=== PATIENT | female | born 1960 | race Caucasian/White ===

== ENCOUNTER → 2016-11-12 | Outpatient (CLI) | payer OTHER | LOC: BMCIMAGING 14:31 | PROVIDERS: ATTEND Physician Assistant Medical | DX: R05 Cough (principal) ==

== ENCOUNTER 2018-07-02 05:41 | Observation (INO) | payer OTHER ==
--- NOTE | 2018-07-02 05:50 | EDPHY ---
H & P - Medical/Surgical History Hx Asthma: No Hx Chronic Respiratory Disease: No Hx Diabetes: No Hx Cardiac Disease: No Hx Renal Disease: No Hx Cirrhosis: No Hx Alcoholism: No Hx HIV/AIDS: No Hx Splenectomy or Spleen Trauma: No Other PMH: Bipolar, Time Seen by Provider: 07/02/18 05:45 HPI/ROS: Chief Complaint: Chest pain HPI: 58-year-old woman woke approximately 1 hr ago with tightness in her upper chest. Worse about an 8/10. It felt like she could not take a full breath. Was not radiating. Does not have a history of similar episodes in the past. No recent illness. No fevers or chills. No cough. No abdominal pain. She does not smoke. She does have a family history of coronary artery disease, her father had heart trouble when he is in his 50s. She has not have a history of dyspnea or chest pain on exertion. Two nights ago and she did have some cramping in her right leg. No swelling. No periods of immobility recently. EMS gave her 4 baby aspirin. ROS: 10 systems were reviewed and were negative except those elements noted in the HPI. PMH: Bipolar disorder Social History: No smoking, occasional alcohol, no recreational drug use Family History: Father has a history of coronary artery disease which began in his 50s. Physical Exam: Gen: Awake, Alert, No Distress HEENT: Nose: no rhinorrhea Eyes: PERRLA, EOMI Mouth: Moist mucosa Neck: Supple, no JVD Chest: nontender, lungs clear to auscultation Heart: S1, S2 normal, no murmur Abd: Soft, non-tender, no guarding Back: no CVA tenderness, no midline tenderness Ext: no edema, non-tender Skin: no rash Neuro: CN II-XII intact, Sensation grossly intact, Strength 5/5 in bilateral upper and lower extremities (Chato Valencia) Constitutional: Initial Vital Signs Temperature (C) 36.5 C 07/02/18 05:47 Heart Rate 73 07/02/18 05:47 Respiratory Rate 18 07/02/18 05:47 Blood Pressure 143/89 H 07/02/18 05:47 O2 Sat (%) 96 07/02/18 05:47 O2 Delivery Mode Nasal Cannula O2 (L/minute) 2 Allergies/Adverse Reactions: Penicillins Allergy (Intermediate, Verified 07/02/18 06:05) Rash Home Medications: Medication Instructions Recorded lamoTRIgine [Lamictal] 200 mg PO HS 09/26/13 Herbals/Supplements -Info Only 1 ea PO DAILY 07/02/18 Ibuprofen [Motrin (*)] 400 mg PO Q6H PRN 07/02/18 Medical Decision Making - Diagnostics EKG Interpretation: ECG time 5:52 a.m., sinus rhythm with a rate of 65, normal axis, normal intervals, no acute ST or T-wave changes. Impression: Normal ECG. (Chato Valencia) ED Course/Re-evaluation: 58-year-old woman with a single risk factor for coronary artery disease presenting with chest tightness which woke with this morning. She has a heart score of 3 putting her in the low risk category. I have given her a GI cocktail. Awaiting chest x-ray and D-dimer results. Patient has not had any change with GI cocktail. Chest x-ray and D-dimer are normal. She has a heart score 3. Plan will be to repeat a troponin at 8:30 a.m.. If this is negative she will be suitable for outpatient follow-up. I have reviewed the results of the initial diagnostic testing and the risk factors with the patient, including the results of the troponin and the ECG. We have also discussed the results of the repeat troponin. The patient understands that since these are negative, the risk of having a heart attack or heart complication within the next 30 days is 1%, or 1/100. We discussed the patient's personal risk level evaluation and we discussed the importance of follow-up. If their symptoms are to worsen or if they are unable to get follow- up with one-week the patient will return to the emergency department. The decision to be discharged for outpatient follow-up was made by a shared decision making process between myself and the patient. (Chato Valencia) Other Provider: I was asked by the patient's nurse to discuss her case with her at 9:10 a.m.; she states she is still having chest pain and is not comfortable going home, wants to know "what is causing my symptoms." Repeat troponin is negative, she says she still has some upper chest discomfort which is worse with taking a deep breath. She does not have any abdominal pain or tenderness. Labs reviewed including and negative D-dimer and 2-troponins. At this time the also tells me that the patient has bipolar disorder which is often poorly controlled, he thinks that this may be contributing to her symptoms as well. She is given IV pain medication. 927: discussed with Dr. Iraheta to arrange prompt cardiology followup; 938: he came to ED to consult, and assumed care of the patient. After consultation and diagnostics he asked the patient be admitted to his service for further evaluation. (Dami Edge) - Data Points Laboratory Results: Laboratory Results 07/02/18 05:45 07/02/18 05:45 Medications Given: Acetaminophen (Tylenol) 650 mg PO QID PRN PRN Reason: Pain, Mild Able to Take PO Stop: 12/29/18 15:11 Last Admin: 07/02/18 21:15 Dose: 650 mg Sodium Chloride (Ns) 1,000 mls @ 200 mls/hr IV CONT YANCY Stop: 12/29/18 17:29 Last Admin: 07/02/18 19:00 Dose: 1,000 mls Lamotrigine (Lamictal) 200 mg PO HS YANCY Stop: 12/29/18 20:59 Last Admin: 07/02/18 21:12 Dose: 200 mg Pantoprazole Sodium (Protonix) 40 mg PO DAILY YANCY Stop: 12/29/18 20:29 Last Admin: 07/02/18 21:17 Dose: 40 mg Discontinued Medications Al Hydroxide/Mg Hydroxide (Maalox Susp) 30 ml PO ONCE ONE Stop: 07/02/18 06:02 Last Admin: 07/02/18 06:08 Dose: 30 ml Al Hydroxide/Mg Hydroxide (Maalox Susp) 30 ml PO ONCE ONE Stop: 07/02/18 20:21 Last Admin: 07/02/18 21:13 Dose: 30 ml Aspirin Buffered (Aspirin Ec) 325 mg PO ONCALL ONE Stop: 07/02/18 15:13 Last Admin: 07/02/18 19:34 Dose: Not Given Diazepam (Valium) 5 mg PO ONCALL ONE Stop: 07/02/18 15:13 Last Admin: 07/02/18 19:33 Dose: Not Given Diphenhydramine HCl (Benadryl) 25 mg PO ONCALL ONE Stop: 07/02/18 15:13 Last Admin: 07/02/18 19:33 Dose: Not Given Famotidine (Pepcid) 20 mg PO ONCALL ONE Stop: 07/02/18 15:13 Last Admin: 07/02/18 19:33 Dose: Not Given Hydromorphone HCl (Dilaudid) 0.5 mg IVP EDNOW ONE Stop: 07/02/18 13:39 Last Admin: 07/02/18 13:40 Dose: 0.5 mg Hyoscyamine Sulfate (Levsin, Hyomax-Sl) 0.25 mg PO ONCE ONE Stop: 07/02/18 20:21 Last Admin: 07/02/18 21:12 Dose: 0.25 mg Ketorolac Tromethamine (Toradol) 15 mg IVP EDNOW ONE Stop: 07/02/18 06:31 Last Admin: 07/02/18 06:35 Dose: 15 mg Lamotrigine (Lamictal) 200 mg PO DAILY YANCY Stop: 12/29/18 20:14 Last Admin: 07/02/18 21:20 Dose: Not Given Lidocaine (Lidocaine 2% Viscous) 15 ml PO ONCE ONE Stop: 07/02/18 06:02 Last Admin: 07/02/18 06:08 Dose: 15 ml Lidocaine (Lidocaine 2% Viscous) 15 ml PO ONCE ONE Stop: 07/02/18 20:21 Last Admin: 07/02/18 21:13 Dose: 15 ml Lorazepam (Ativan Injection) 0.5 mg IVP EDNOW ONE Stop: 07/02/18 07:19 Last Admin: 07/02/18 07:19 Dose: 0.5 mg Point of Care Test Results: Chemistry 07/02/18 07/02/18 08:35 05:49 POC Troponin I 0.01 ng/mL ng/mL 0.01 ng/mL ng/mL (0.00-0.08) (0.00-0.08) Departure - Departure Disposition: [facility] Inpatient Acute Clinical Impression: Chest pain Condition: Good
[2018-07-02 06:00] LABS: PLATELET COUNT 315 10^3/uL (150-400)
[2018-07-02] MEDS ORDERED: LIDOCAINE 2% VISCOUS 15 ML UDCUP PO ONE ×2 (06:01→20:20)
[2018-07-02] MEDS ORDERED: MAG HYDROX/AL HYDROX/SIMETH 30 ML UDCUP PO ONE ×2 (06:01→20:20)
[2018-07-02] MEDS ORDERED: KETOROLAC 15 MG/1 ML SDV IVP ONE (06:30)
[2018-07-02] MEDS ORDERED: HYDROmorphONE/DILAUDID 2 MG/ML INJ IVP ONE ×2 (06:43→13:38)
[2018-07-02] MEDS ORDERED: LORazepam 2 MG/ML INJ ONE (07:15)
--- NOTE | 2018-07-02 07:15 | CPEKG ---
Test Reason : OPEN Blood Pressure : / mmHG Vent. Rate : 065 BPM Atrial Rate : 064 BPM P-R Int : 139 ms QRS Dur : 081 ms QT Int : 400 ms P-R-T Axes : 064 010 038 degrees QTc Int : 416 ms Sinus rhythm Confirmed by Chato Valencia ([id number]) on 07/02/2018 7:15:32 AM Referred By: Confirmed By:Chato Valencia
[2018-07-02] MEDS ORDERED: LORazepam 2 MG/ML INJ IVP ONE (07:18)
[2018-07-02] MEDS ORDERED: IOPAMIDOL (ISOVUE 370) 100 ML BTL IV ONE (13:12)
--- NOTE | 2018-07-02 13:17 | GCON ---
CARDIOLOGY CONSULTATION DATE OF CONSULTATION: 07/02/2018 INDICATION FOR CONSULTATION: Chest pain. HISTORY OF PRESENT ILLNESS: Ilsa is a pleasant 58-year-old female with a past medical history of bi polar disorder, which has been stable on current dose of Lamictal, who was in her usual state of heal th until approximately 4:30 this morning when she woke with what she describes as 4/[address] tightness, that she also describes as "squeezing" with radiation to her right shoulder and jaw. S he states these symptoms were also associated with shortness of breath and difficulty taking a deep b reath. She got up out of bed and was unable to relieve alleviate the symptoms, prompting her to seek medical attention at [facility]. Since her hospitalization, she has received Maalox as well as 0.5 mg of Dilaudid and 50 mg of Toradol and half a mg of Ativan. None of these measures have alleviated her pain. Currently, at the time of my exam, she continues to complain of 8/10 substernal chest tightness and s queezing with progression of symptoms to the right shoulder, neck and now into the jaw. She continue s to have difficulty taking deep breath. Mrs. Saldana has no known history of coronary artery disease. She has no history of hypertension, hy perlipidemia or diabetes. She does have a family history of premature coronary artery disease. Her father underwent coronary a rtery bypass graft surgery initially in his 50s. No other family members with known coronary artery disease. Mrs. Saldana has no history of DVT, pulmonary emboli, or hypercoagulable conditions. She has not had any long car rides or plane rides recently. She has no recent history of viral syndrome, flu or GI illness. No recent complaints of fevers, chil ls, sweats, nausea, or vomiting. PAST MEDICAL HISTORY: Bipolar disorder. MEDICATIONS ON ADMISSION: Lamictal 200 mg q.h.s. SOCIAL HISTORY: She is . 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 She has a 13-year-o ld daughter. She is a nonsmoker currently; however, she did smoke for approximately 10 years and aster t in 1999. No illicit drug use. She does walk regularly approximately 20 minutes 1 hour without sym ptoms. PHYSICAL EXAMINATION: VITAL SIGNS: Blood pressure is currently 99/65, heart rate of 72 in sinus rhy thm, oxygen saturation 97% on room air. GENERAL: She is awake, alert, oriented, appropriate, and ap pears to be resting comfortably. She does have difficulty taking deep inspiration. NECK: There is no evidence of JVP or carotid bruits. LUNGS: Clear to auscultation bilaterally. CARDIAC: S1, S2. Regular rate and rhythm. No murmurs, rubs, or gallops. ABDOMEN: Soft, mildly tender to deep palpa tion. There is no evidence of abdominal bruits or pulsatile mass. EXTREMITIES: No evidence of cyan osis, clubbing or lower extremity edema. Calves are nontender to palpation. She has 2+ dorsalis ped is and posterior tibial pulses, bilaterally. DATA: Chest x-ray was unremarkable. ECG demonstrates sinus rhythm at 65 beats per minute with normal intervals. Normal axis. No evidenc e of ischemic changes. White blood cell count 13.56, hemoglobin 16.1, hematocrit 46.2, platelet count 315. D-dimer 0.28 wit hin normal limits. Sodium 141, potassium 5.1, chloride 105, bicarb 23, BUN 23, creatinine 0.7, point of care troponin at 0549 was within normal limits at 0.01. Repeat troponin at 0835 unchanged at 0.0 1. IMPRESSION: Mrs. Saldana is a pleasant 58-year-old female who woke with acute onset of substernal ch est tightness 8/10 now radiating to the right shoulder into the neck and jaw, unresponsive to Maalox, Dilaudid, Toradol and Ativan. EKG is unremarkable. Initial troponins x2, most recently at approxim ately 0830 was unremarkable point of care troponin; however, she has ongoing symptoms. I would recommend stat echocardiogram to assess left ventricular function as well as right ventricula r function. If the echocardiogram is unremarkable for signs of right ventricular strain or any indic ation of possible pulmonary embolism, would recommend pursuing diagnostic left heart catheterization. She has no risk factors or history that would suggest pulmonary embolism. No recent history suggesti ve of pericarditis. PLAN: 1. Stat echocardiogram. 2. Pending results of echocardiogram, we will pursue diagnostic left heart catheterization. /[id number]/MODL
[2018-07-02] MEDS ORDERED: HYDROmorphONE/DILAUDID 2 MG/ML INJ ONE (13:34)
[2018-07-02] MEDS ORDERED: diphenhydrAMINE 25 MG CAP PO ONE (15:12)
[2018-07-02] MEDS ORDERED: ASPIRIN EC 325 MG TAB PO ONE (15:12)
[2018-07-02] MEDS ORDERED: FAMOTIDINE 20 MG TAB PO ONE (15:12)
[2018-07-02] MEDS ORDERED: DIAZEPAM 5 MG TAB PO ONE (15:12)
[2018-07-02] MEDS ORDERED: NITROGLYCERIN 0.4 MG BTL SL PRN (15:12)
[2018-07-02] MEDS ORDERED: ACETAMINOPHEN 325 MG TAB PO PRN (15:12)
[2018-07-02] MEDS ORDERED: TEMAZEPAM 15 MG CAP PO PRN (15:12)
[2018-07-02] MEDS ORDERED: NS 1,000 ML IV SCH ×2 (15:15→17:30)
[2018-07-02] MEDS ORDERED: LIDOCAINE 1% 300 MG/30 ML SDV ONE (15:18)
[2018-07-02] MEDS ORDERED: fentaNYL 100 MCG/2 ML INJ ONE (15:18)
[2018-07-02] MEDS ORDERED: MIDAZOLAM 2 MG/2 ML VIAL ONE (15:19)
[2018-07-02] MEDS ORDERED: IOPAMIDOL (ISOVUE-370) 150 ML BTL IV ONE (15:19)
--- NOTE | 2018-07-02 16:07 | PDPROPOC ---
Sedation Plan of Care Sedation Plan of Care: vital signs stable, mental status noted, patient educated of risks, benefits, alternatives, patient can tolerate sedation ASA Classification: ASA 2 Planned drugs: fentanyl, midazolam Mallampati Score: Class 2 Mallampati Reference Image: Patient passed 3-3-2 rule?: Yes
--- NOTE | 2018-07-02 16:45 | ECHO ---
[email or web address] [address] Main: [phone] Fax: Transthoracic Echocardiogram Name: MIGEL MEDINA MR#: [id number] Study Date: 07/02/2018 Study Time: 12:37 PM Date of : 1960 Age: 58 year(s) Height: 154.9 cm (61 in.) Weight: 47.63 kg (105 lb.) BSA: 1.44 m2 Gender: Female Examination: Echo Indication: Chest Pain Image Quality: Adequate Contrast: Requested by: Dami Edge BP: 108 mmHg/74 mmHg Heart Rate: Rhythm: Indication: Chest Pain Procedure Staff Finished Cloth Examiner: Erica Lozoya [facility] Reading Physician: Hung Rangel MD Requesting Provider: Conclusions: Normal size left ventricle. Normal global systolic LV function. EF is 59 %. Normal RV function. The mitral valve is normal in appearance and function. Trivial mitral valve regurgitation. The aortic valve is tri-leaflet and functions normally. There is no aortic valve regurgitation. No aortic valve stenosis is present. Pulmonary artery pressure is not obtained due to inadequate TR jet. Normal size aortic root measuring 2.8 cm. No pericardial effusion. No old studies for comparison. Measurements: Chambers Valvular Assessment AV/MV Valvular Assessment TV/PV Normal Normal Normal Name Value Range Name Value Range Name Value Range Ao Laura (MM): 2.8 cm (2.2 cm-3.7 AV Vmax: 1.35 m/s (1 m/s-1.7 TR Vmax: 1.99 mm/s ( - ) cm) m/s) TR PGmax: 16 mmHg ( - ) IVSd (2D): 0.8 cm (0.6 cm-1.1 AV maxP mmHg ( - ) PV Vmax: 0.66 m/s (0.6 m/s-0.9 cm) LVOT Vmax: 0.85 m/s (0.7 m/s-1.1 m/s) LVDd (2D): 3.5 cm (3.9 cm-5.3 m/s) PV PGmax: 2 mmHg ( - ) cm) FABIANA (Vmax): 1.3 cm2 ( - ) LVDs (2D): 2.6 cm (2.1 cm-4 MV E Vmax: 0.55 m/s ( - ) cm) MV A Vmax: 0.61 m/s ( - ) LVPWd (2D): 0.7 cm ( - ) MV E/A: 0.90 ( - ) LVOTd 1.6 cm 1.6 cm mm LVEF (BP): 59 % (>=55 %) Patient: MIGEL MEDINA Study Date: 07/02/2018 Page 1 of 2 12:37 PM RVDd(2D): 3.3 cm (1.9 cm-3.8 cmmm) Continued Measurements: Chambers Valvular Assessment AV/MV Name Value Name Value LADs Lon.9 cm MV DecTime: 204 m/s LA Area: 9.3 cm2 MV E/E' Septal: 7.00 LA Volume: 17 ml MV E/E' Lateral: 5.80 LA Volume Index: 11.8 ml/m2 TAPSE: 1.6 cm RA Area: 10.7 cm2 Findings: Left Ventricle: Normal size left ventricle. No LV hypertrophy. Normal global systolic LV function. EF is 59 %. No regional wall motion abnormality. Mild septal bounce noted. Normal diastolic LV function. Right Ventricle: Mildly dilated right ventricle. Normal RV function. Left Atrium: The left atrium is normal in size. Right Atrium: The right atrium is normal in size. Mitral Valve: The mitral valve is normal in appearance and function. Trivial mitral valve regurgitation. No mitral stenosis is present. Aortic Valve: The aortic valve is tri-leaflet and functions normally. There is no aortic valve regurgitation. No aortic valve stenosis is present. Tricuspid Valve: The tricuspid valve is normal in appearance and function. Trivial tricuspid valve regurgitation. Pulmonary artery pressure is not obtained due to inadequate TR jet. Pulmonic Valve: Pulmonary valve not well visualized. There is no pulmonic regurgitation seen. Aorta: Normal size aortic root measuring 2.8 cm. IVC: Normal size and course of the IVC. Pericardium: No pericardial effusion. (No Signature Object) Patient: MIGEL MEDINA Study Date: 07/02/2018 Page 2 of 2 12:37 PM [id number]
[2018-07-02] MEDS ORDERED: ONDANSETRON 4 MG/2 ML VIAL IVP PRN (17:18)
[2018-07-02] MEDS ORDERED: ATROPINE SULFATE 1 MG/10 ML SYR IVP PRN (17:18)
[2018-07-02 17:54] LABS: INR 1.1 (0.83-1.16); PROTIME(PATIENT) 14.4 SEC (12.0-15.0)
--- NOTE | 2018-07-02 19:14 | CPIP ---
DATE OF PROCEDURE: 07/02/2018 PROCEDURE PERFORMED: Diagnostic left heart catheterization. INDICATION FOR LEFT HEART CATHETERIZATION: Patient with acute onset of 8/10 substernal chest pain. Pain has persisted throughout the course of the day. The pain has not responded to medication includ ing Dilaudid, GI cocktail, Ativan and Toradol. CTA was negative for pulmonary embolism or aortic dis section. In the setting of ongoing 8/10 chest pain refractory to medical therapy, patient was pradeep t to cardiac catheterization lab for further evaluation. PROCEDURE: After informed consent was obtained for left heart catheterization, patient was prepped a nd draped in sterile fashion. Using 1% lidocaine, the right groin was anesthetized. Using modified Seldinger technique and micropuncture technique, 6-Lao catheter was placed into the right common f emoral artery without complications. A JL4 catheter was used to take images of the left coronary maranda alex in multiple projections. JL4 catheter was exchanged over a guidewire for a JR4 catheter. JR4 c atheter was used to take pictures of the right coronary artery. JL4 catheter was exchanged over a gu idewire for a Leno right catheter for 1 final image of the right coronary artery. Leno right was used to cannulate the right coronary artery. AP cranial images were obtained of the right coron francia artery. Leno right catheter was exchanged over a guidewire for angled pigtail catheter. Ang led pigtail catheter was used to cross the aortic valve. Left ventriculogram was performed. Aortic valve gradient was assessed. Angled pigtail catheter was removed over a guidewire without complicati ons. Imaging of the right common femoral artery demonstrated appropriate placement of the catheter b elow the inguinal ligament and above the right common femoral artery bifurcation. FINDINGS: 1. Left main is normal size and caliber. Bifurcates into left anterior descending and left circumfl ex coronary artery. Left main demonstrates no evidence of coronary disease. 2. Left anterior descending artery is normal with no evidence of coronary disease. There is a moder ate-sized diagonal branch free of coronary artery disease. 3. 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 4. Circumflex artery is a large caliber vessel. There is a moderate-sized first obtuse marginal bra nch with no evidence of coronary disease. 5. Right coronary artery is a codominant vessel. No evidence of coronary disease within the right c oronary artery. HEMODYNAMICS: LVEF 65%. LVEDP 20 mmHg. Aortic valve gradient 3 mmHg. IMPRESSION: 1. Normal coronary arteries. 2. Normal left ventricular function. PLAN: 1. Patient will be admitted to [facility] Telemetry. 2. Consultation with hospitalist service for ongoing complaints of chest pain with no clear underlyi ng cardiopulmonary etiology. /[id number]/MODL
[2018-07-02] MEDS ORDERED: lamoTRIgine 100 MG TAB PO SCH ×2 (20:15→21:00)
[2018-07-02] MEDS ORDERED: HYOSCYAMINE SULFATE 0.125 MG TAB PO ONE (20:20)
[2018-07-02] MEDS ORDERED: KETOROLAC 15 MG/1 ML SDV IVP PRN (20:21)
--- NOTE | 2018-07-02 20:25 | PDGENHP ---
History and Physical - Chief Complaint chest pain - History of Present Illness 58 yo female with h/o bipolar disorder presents to ED with chest pain. She awoke at 4:30 am with central chest pressure, which radiated to left chest wall. She endorses pleuritic pain as well. No associated nausea or diaphoresis. She is not SOB. No cough or fevers. She describes the pain as tight and sharp. In the ED, cardiology consult was obtained and she underwent a left heart cath today which was negative for obstructive lesions. In addition , a CTA was negative for PE or dissection. She denies difficulty swallowing. She reports pain may be worse with eating. No N/V/D or abdominal pain. After workup has ruled out ACS, PE, dissection or other pulmonary issues, medicine is consulted to assist with management. History Information - Allergies/Home Medication List Allergies/Adverse Reactions: Penicillins Allergy (Intermediate, Verified 07/02/18 06:05) Rash Home Medications: lamoTRIgine [Lamictal] 200 mg PO HS 09/26/13 [Last Taken 07/01/18] Herbals/Supplements -Info Only 1 ea PO DAILY 07/02/18 [Last Taken 07/01/18] Ibuprofen [Motrin (*)] 400 mg PO Q6H PRN 07/02/18 [Last Taken 07/01/18] I have personally reviewed and updated: family history, medical history, social history, surgical history - Past Medical History Additional medical history: Bipolar disorder - Surgical History Reports: no pertinent surgical hx - Family History Positive for: non-pertinent - Social History Smoking Status: Never smoked Alcohol Use: None Drug Use: None Additional social history: Review of Systems Review of Systems: ROS: 10pt was reviewed & negative except for what was stated in HPI & below Physical Exam Physical Exam: Temp Pulse Resp BP Pulse Ox 36.8 C 83 14 102/69 96 07/02/18 18:51 07/02/18 18:51 07/02/18 18:51 07/02/18 18:51 07/02/18 18:51 O2 (L/minute) 2 Constitutional: no apparent distress Eyes: PERRL Ears, Nose, Mouth, Throat: moist mucous membranes Cardiovascular: regular rate and rhythym Respiratory: no respiratory distress, clear to auscultation Gastrointestinal: normoactive bowel sounds, soft, non-tender abdomen Skin: warm Musculoskeletal: full muscle strength Neurologic: AAOx3 Psychiatric: interacting appropriately Lab Data & Imaging Review 07/02/18 05:45 07/02/18 05:45 WBC 13.56 10^3/uL (3.80-9.50) H 07/02/18 05:45 RBC 4.98 10^6/uL (4.18-5.33) 07/02/18 05:45 Hgb 16.1 g/dL (12.6-16.3) 07/02/18 05:45 Hct 46.2 % (38.0-47.0) 07/02/18 05:45 MCV 92.8 fL (81.5-99.8) 07/02/18 05:45 MCH 32.3 pg (27.9-34.1) 07/02/18 05:45 MCHC 34.8 g/dL (32.4-36.7) 07/02/18 05:45 RDW 13.0 % (11.5-15.2) 07/02/18 05:45 Plt Count 315 10^3/uL (150-400) 07/02/18 05:45 MPV 9.7 fL (8.7-11.7) 07/02/18 05:45 Neut % (Auto) 69.1 % (39.3-74.2) 07/02/18 05:45 Lymph % (Auto) 21.2 % (15.0-45.0) 07/02/18 05:45 Riley % (Auto) 7.6 % (4.5-13.0) 07/02/18 05:45 Eos % (Auto) 1.2 % (0.6-7.6) 07/02/18 05:45 Baso % (Auto) 0.6 % (0.3-1.7) 07/02/18 05:45 Nucleat RBC Rel Count 0.0 % (0.0-0.2) 07/02/18 05:45 Absolute Neuts (auto) 9.37 10^3/uL (1.70-6.50) H 07/02/18 05:45 Absolute Lymphs (auto) 2.88 10^3/uL (1.00-3.00) 07/02/18 05:45 Absolute Monos (auto) 1.03 10^3/uL (0.30-0.80) H 07/02/18 05:45 Absolute Eos (auto) 0.16 10^3/uL (0.03-0.40) 07/02/18 05:45 Absolute Basos (auto) 0.08 10^3/uL (0.02-0.10) 07/02/18 05:45 Absolute Nucleated RBC 0.00 10^3/uL (0-0.01) 07/02/18 05:45 Immature Gran % 0.3 % (0.0-1.1) 07/02/18 05:45 Immature Gran # 0.04 10^3/uL (0.00-0.10) 07/02/18 05:45 PT 14.4 SEC (12.0-15.0) 07/02/18 16:42 INR 1.10 (0.83-1.16) 07/02/18 16:42 APTT 27.7 SEC (23.0-38.0) 07/02/18 16:42 D-Dimer 0.28 ug/mLFEU (0.00-0.50) 07/02/18 05:45 Sodium 141 mEq/L (135-145) 07/02/18 05:45 Potassium 5.1 mEq/L (3.3-5.0) H 07/02/18 05:45 Chloride 105 mEq/L (97-110) 07/02/18 05:45 Carbon Dioxide 23 mEq/l (22-31) 07/02/18 05:45 Anion Gap 13 mEq/L (6-14) 07/02/18 05:45 BUN 23 mg/dL (7-23) 07/02/18 05:45 Creatinine 0.7 mg/dL (0.6-1.0) 07/02/18 05:45 Estimated GFR > 60 07/02/18 05:45 Glucose 100 mg/dL (70-100) 07/02/18 05:45 Calcium 9.8 mg/dL (8.5-10.4) 07/02/18 05:45 POC Troponin I 0.01 ng/mL (0.00-0.08) 07/02/18 08:35 Specimen Hemolysis 120 07/02/18 05:45 Visualized and Interpreted Chest x-ray results: Yes Chest X-Ray results: no infiltrate Visualized and Interpreted EKG results: Yes EKG Interpretation: Positive for: normal sinsus rhythm, NS ST wave abnormalities Assessment & Plan Assessment: Chest pain (Acute) - clean cors on LHC. CTA neg for PE or dissection. No e/o PNA. Echo without effusion or significant abnormality (mild dilated RV, but nl RV function). No fevers. Consider GI etiology or msk source. -trial GI cocktail -add PPI -IV toradol -monitor on telemetry Bipolar disorder - stable, some consideration given to anxiety as source of above -cont lamictal -prn anxiolytic Leukocytosis - query stress response, no e/o infection, afebrile -recheck in am Full code Dispo - obs
[2018-07-02] MEDS: PANTOPRAZOLE SODIUM 40 MG TAB PO SCH (21:17)
[2018-07-03 04:32] LABS: PLATELET COUNT 252 10^3/uL (150-400)
[2018-07-03 07:20] VITALS: BP 94/54
[2018-07-03] MEDS: PANTOPRAZOLE SODIUM 40 MG TAB PO SCH (09:37)
--- NOTE | 2018-07-03 10:42 | PDCARPN ---
Cardiology Progress Note Assessment/Plan: Assessment: 1. Chest Pain (negative cardiac work up) 2. Chest wall pain most likely musculoskeletal in the setting of neg cards work up 3. Bipolar Plan: -OK for discharge home -No new medications -No need for cardiology follow up -Post [facility] instructions reviewed with pt -Recommend follow up with PCP, Dr. Nishi Dinero 07/03/18 10:40 07/03/18 10:43 Subjective: Ilsa is feeling better this Am. Chest wall pain has significantly improved. She is hemodynamically stable. No events on Tele. Extensive cardiac work up with normal LV function. RV mildly dilated with no evidence of pulmonary hypertension. CTA neg for PE or aortic dissection. LHC demonstrated normal cors. Reviewed/Discussed With: family, hospitalist Objective: Vital Signs (8 Hrs) Temp Pulse Resp BP Pulse Ox 07/03/18 07:20 36.9 C 93 14 94/54 L 95 07/03/18 04:00 36.6 C 74 12 96/63 L 95 Intake/Output (24 Hrs) 07/02/18 07/03/18 07/04/18 05:59 05:59 05:59 Intake Total 2240 Balance 2240 Intake: Oral (ml) 890 IV Intake (ml) 500 IV Infused (ml) 850 Ns 1,000 ml @ 200 mls/hr 850 IV CONT YANCY Rx#: [id number] Other: Weight 47.627 kg Number of Voids 1 Toilet 1 Result Diagrams: 07/03/18 03:34 07/03/18 03:34 - Physical Exam Cardiovascular: regular rate and rhythm, no murmurs, no rubs, no gallops, other (Right groin without hematoma or ecchymosis. ) Respiratory: clear to auscultate bilat ICD10 Worksheet Patient Problems: Problems Problem Status Onset Chest pain Acute Confusion Acute
--- NOTE | 2018-07-03 18:40 | GDS ---
DISCHARGE DIAGNOSES: 1. Chest pain suspect musculoskeletal. 2. Negative cardiac catheterization. 3. Bipolar disorder. HISTORY: The patient is a 58-year-old female, who presents to the emergency room with chest pain moriah t awoke her from sleep. In the emergency room she had persistent 8/10 chest pain that could not be r elieved. She got a CT angiogram of the chest, which was negative. An echocardiogram also unremarkab le. Cardiology was consulted and they brought her urgently to cardiac catheterization due to this pe rsistent chest pain and it was negative. This morning she is feeling much better. Her chest pain is relieved. It is felt to be likely musculoskeletal in origin. Perhaps exacerbated by severe anxiety . DISCHARGE MEDICATIONS: Please see computer record for full detailed list. There are no new medicati ons given at the time of hospital discharge. ADDITIONAL DISCHARGE INSTRUCTIONS: Follow up with primary care. /[id number]/MODL
== END 2018-07-03 11:45 | disposition home or self-care (01) ==
LOC: EDUNIT# → F2W 18:40
PROVIDERS: ADMIT Internal Medicine Cardiovascular Disease; ATTEND Internal Medicine
DX: R07.89 Other chest pain (principal); F31.9 Bipolar disorder, unspecified; D72.829 Elevated white blood cell count, unspecified; Z82.49 Family history of ischemic heart disease and other diseases of the circulatory system; Z88.0 Allergy status to penicillin
CPT/HCPCS: 71046; 71275; 93005; 93306; 93458; 96374; 96375; 99285; G0378; 84484-PO; J1170; J1644; J1885; J2060; J2250; J3010; Q9967

== ENCOUNTER → 2018-11-09 | Outpatient (CLI) | payer OTHER | LOC: FIMAGING 08:07 | PROVIDERS: ATTEND Physician Assistant Medical | DX: R10.13 Epigastric pain (principal) ==

== ENCOUNTER → 2018-12-25 | Outpatient (CLI) | payer OTHER | LOC: FIMAGING 08:30 | PROVIDERS: ATTEND Physician Assistant | DX: R10.11 Right upper quadrant pain (principal) | CPT/HCPCS: 78227; A9537 ==